=== PATIENT | male | born 1945 | race Caucasian/White ===

== ENCOUNTER 2024-08-04 08:21 | Day surgery (SDC) | payer MEDICARE ==
[2024-08-04] VITALS (7 sets, daily range): BP systolic 106–129; BP diastolic 63–76; PULSE 48–98; RESP 13–51; O2SAT 50–99
[~2024-08-04 08:21] MED LIST: IBUP-2697 PO
[2024-08-04] MEDS ORDERED: propofol inj 20 ML IV ONE ×2 (10:30)
== END 2024-08-04 11:45 | disposition home or self-care (01) ==
LOC: GI LAB 08:21
PROVIDERS: ATTEND Internal Medicine Gastroenterology
DX: D50.9 Iron deficiency anemia, unspecified (principal); K63.89 Other specified diseases of intestine; Z79.899 Other long term (current) drug therapy
CPT/HCPCS: 45378; A4620; J2704; J7030; Z7512

== ENCOUNTER 2024-08-18 08:09 | Day surgery (SDC) | payer MEDICARE ==
[~2024-08-18] VITALS: Ht 182.9 cm; Wt 80.0 kg
[2024-08-18 08:47] VITALS: BP 118/76; PULSE 57; RESP 18
[2024-08-18] MEDS ORDERED: midazolam 1 mg/ML 2ml injection ONE (10:09)
[2024-08-18] MEDS ORDERED: fentaNYL/PF 50MCG/1 ML 2ML syringe ONE (10:09)
[2024-08-18] MEDS ORDERED: propofol inj 20 ML IV ONE (10:19)
[2024-08-18 10:25] VITALS: BP 97/63; PULSE 47; RESP 16; O2SAT 96
[2024-08-18 10:35] VITALS: BP 100/62; PULSE 47; RESP 15; O2SAT 95
[2024-08-18 10:45] VITALS: BP 98/65; PULSE 46; RESP 17; O2SAT 97
[2024-08-18 10:55] VITALS: BP 96/63; PULSE 47; RESP 15; O2SAT 95
--- NOTE | 2024-08-19 10:59 | PATHOLOGY REPORT ---
[facility] [address] [place] [address] SURGICAL PATHOLOGY REPORT CaseNumber: [id number] Surgeon:Sylvia Soliz M.D. CLINICAL INFORMATION CLINICAL INFORMATION: Iron deficiency anemia due to suspected upper gastrointestinal bleeding. DIAGNOSIS DIAGNOSIS: A.SMALL BOWEL, DUODENUM; BIOPSY - NORMAL DUODENAL MUCOSA. DIAGNOSIS: B.STOMACH, ANTRUM; BIOPSY - NORMAL ANTRAL-TYPE GASTRIC MUCOSA. - NEGATIVE FOR INTESTINAL METAPLASIA. - NEGATIVE FOR H. PYLORI. MICROSCOPIC DESCRIPTION A. SMALL BOWEL, DUODENUM MICROSCOPIC DESCRIPTION: Reviewed is 1 H&E stained slide showing multiple levels of small bowel mucos a. Villous architecture is normal. The mucin pattern is normal; intrapepithelial neutrophils are not identified and intraepithelial lymphocytes are not increased. I do not see evidence of gastric foveo lar metaplasia or dysplasia. B. STOMACH, ANTRUM MICROSCOPIC DESCRIPTION: Reviewed is 1 H&E stained slide showing multiple levels of gastric antral-ty pe mucosa. I see no significant increase in acute or chronic inflammation. The glands are appropria tely spaced; I see no evidence of fibrosis. There is no evidence of dysplasia, intestinal metaplasia , or Helicobacter pylori. GROSS DESCRIPTION A. SMALL BOWEL, DUODENUM GROSS DESCRIPTION: Received in a container of formalin labeled with the patient's name, number, and " second portion of duodenum biopsy" is a 0.1 cm piece of burnette tissue. The specimen is entirely submitte d as A1. The time at which the specimen was removed was 1017. The time at which the specimen was plac ed in formalin was 1018. B. STOMACH, ANTRUM GROSS DESCRIPTION: Received in a container of formalin labeled with the patient's name, number, and " antrum biopsy" is a 0.3 cm piece of burnette tissue. The specimen is entirely submitted as B1. The time at which the specimen was removed was 1018. The time at which the specimen was placed in formalin was 1 018. Electronically signed by: Adan Richey, 08/19/2024 10:29:00 AM
== END 2024-08-18 11:05 | disposition home or self-care (01) ==
LOC: GI LAB 08:09
PROVIDERS: ATTEND Internal Medicine Gastroenterology
DX: D50.9 Iron deficiency anemia, unspecified (principal); K31.89 Other diseases of stomach and duodenum
CPT/HCPCS: 43239; A4620; J2250; J2704; J3010; J7030; Z7512; 88305